=== PATIENT | male | born 1935 | race Two or more races ===

== ENCOUNTER 2021-03-31 11:47 | Inpatient (IN) | payer MEDICARE, MEDICAID ==
[~2021-03-31] VITALS: Ht 162.6 cm; Wt 70.6 kg
[2021-03-31] MEDS ORDERED: SODIUM CHLORIDE FLUSH 10ML SYR IVF ONE (12:30)
[2021-03-31] MEDS ORDERED: SODIUM CHLORIDE 0.9% 1,000 ML IV ONE (12:30)
--- NOTE | 2021-03-31 12:30 | NUR ---
Late entry summary note: This pt is coming from home where he lives with his son. He normally ambulates independently. Per son, pt stopped eating and began becoming weak (AEB not being able to stand up off the couch by himself) about 3 weeks ago. Pt denies pain, complains only of weakness. Pt is A&Ox4. Connected to all monitors. Addendum: 03/31/21 at 1316 by [email or web address] Late entry summary note: This pt is coming from home where he lives with his son. He normally ambulates independently. Per son, pt stopped eating and began becoming weak (AEB not being able to stand up off the couch by himself) about 3 weeks ago. He recieved his first dose of a COVID vaccine 3 days ago. Pt denies pain, complains only of weakness. Pt is A&Ox4. Connected to all monitors.
[2021-03-31] MEDS ORDERED: METF500T17 PO (12:44)
[2021-03-31] MEDS ORDERED: ATOR10TA9 PO (12:44)
--- NOTE | 2021-03-31 12:44 | NUR ---
TASK RN ASSISTING PRIMARY. ISOLATION CART AT DOORWAY. PINK SHEET STARTED, MED REC COMPLETED.
[2021-03-31] MEDS ORDERED: ACETAMINOPHEN 500 MG TABLET ONE (12:48)
[2021-03-31] MEDS ORDERED: ACETAMINOPHEN 500 MG TABLET PO ONE (13:00)
[2021-03-31 13:27] LABS: BASOPHILS % (AUTO) 1 % (0-1); EOSINOPHILS % (AUTO) 0 % (1-7); LYMPHOCYTES % (AUTO) 9 % (22-44); MEAN CORPUSCULAR HEMOGLOBIN 32.9 pg (27.5-34.5); MEAN CORPUSCULAR HGB CONC 34.6 g/dL (33.2-36.2); MONOCYTES % (AUTO) 11 % (2-9); NEUTROPHILS % (AUTO) 80 % (42-75); PLATELET COUNT 95 x10^3/uL (130-400); RED BLOOD COUNT 5.12 x10^6/uL (4.38-5.82); RED CELL DISTRIBUTION WIDTH 14.4 % (9.4-14.8)
[2021-03-31 13:29] LABS: ALANINE AMINOTRANSFERASE 71 U/L (12-78); ALBUMIN 2.8 g/dL (3.4-5.0); ANION GAP 7 mmol/L (5-15); CALCIUM 7.8 mg/dL (8.5-10.1); CHLORIDE 104 mmol/L (98-107); CREATININE 1.45 mg/dL (0.7-1.3)
[2021-03-31 13:31] LABS: MD NO
[2021-03-31 13:33] LABS: ALKALINE PHOSPHATASE 39 U/L (45-117); BILIRUBIN,TOTAL 1.2 mg/dL (0.2-1.0); TOTAL PROTEIN 6.2 g/dL (6.4-8.2); TROPONIN I 0.021 ng/mL (0.000-0.045)
[2021-03-31 13:34] LABS: ACETONE, SERUM Negative (Negative)
[2021-03-31 13:56] LABS: MICROSCOPIC INDICATED
--- NOTE | 2021-03-31 14:40 | NUR ---
TASK RN COVERING MEAL BREAK. PER ERP, NO SEPSIS PROTOCOL/NO SOURCE OF INFECTION BUT POSSIBLE POST VACCINE FEVER.
[2021-03-31] MEDS ORDERED: GUAIFENESIN/COD200MG-20MG/10ML LIQUID PO PRN (15:30)
[2021-03-31] MEDS ORDERED: ONDANSETRON 2MG/ML, 2ML IVPush PRN (15:30)
[2021-03-31] MEDS ORDERED: TEMAZEPAM 15 MG CAPSULE PO PRN (15:30)
[2021-03-31] MEDS ORDERED: ENALAPRILAT 1.25 MG/ML, 2ML IVPush PRN (15:30)
[2021-03-31] MEDS ORDERED: ACETAMINOPHEN 325 MG TABLET PO PRN (15:30)
[2021-03-31] MEDS ORDERED: morphine SULFATE 10 MG/ML, 1ML IVPush PRN (15:30)
[2021-03-31] MEDS ORDERED: DOCUSATE 100 MG CAPSULE PO PRN (15:30)
[2021-03-31] MEDS ORDERED: CYCLOBENZAPRINE 10 MG TABLET PO PRN (15:30)
--- NOTE | 2021-03-31 15:50 | NUR ---
Pt's arms wet from sweat at time of transfer, no sweat noted on forehead. Took oral temp of 97.8, as pt's RR down to 21. Pt has no complaints, A&Ox4 at time of transfer. SBP noted to be < 90. MD Nur made aware, order for 1L bolus NS received and administered prior to transport.
[2021-03-31] MEDS ORDERED: SODIUM CHLORIDE 0.9% 1,000ML IVBOLUS ONE (16:00)
[2021-03-31] MEDS: SODIUM CHLORIDE 0.9% 1,000 ML IV SCH (17:03)
[2021-03-31] MEDS: INSULIN REGULAR 100 UNITS/ML, 3ML VIAL SQ-INSULIN SCH ×2 (17:55→21:47)
[2021-03-31 18:51] VITALS: BP 126/98
[2021-03-31] MEDS: HEPARIN 5,000 UNITS/ML, 1ML SQ SCH (21:47)
[2021-03-31] MEDS: ATORVASTATIN 10 MG TABLET PO SCH (21:47)
[2021-04-01 01:03] VITALS: BP 95/63
[2021-04-01] MEDS: HEPARIN 5,000 UNITS/ML, 1ML SQ SCH ×3 (05:23→20:39)
[2021-04-01 06:46] VITALS: BP 109/70
[2021-04-01 06:57] LABS: BASOPHILS % (AUTO) 1 % (0-1); EOSINOPHILS % (AUTO) 0 % (1-7); LYMPHOCYTES % (AUTO) 10 % (22-44); MEAN CORPUSCULAR HEMOGLOBIN 32.3 pg (27.5-34.5); MEAN CORPUSCULAR HGB CONC 33.1 g/dL (33.2-36.2); MEAN PLATELET VOLUME 11.5 fL (7.4-10.4); MONOCYTES % (AUTO) 6 % (2-9); NEUTROPHILS % (AUTO) 83 % (42-75); PLATELET COUNT 90 x10^3/uL (130-400); RED BLOOD COUNT 4.96 x10^6/uL (4.38-5.82); RED CELL DISTRIBUTION WIDTH 14.1 % (9.4-14.8)
[2021-04-01] MEDS: INSULIN REGULAR 100 UNITS/ML, 3ML VIAL SQ-INSULIN SCH ×4 (07:00→20:38)
[2021-04-01 07:02] LABS: ANION GAP 5 mmol/L (5-15); CALCIUM 8.1 mg/dL (8.5-10.1); CHLORIDE 109 mmol/L (98-107)
[2021-04-01 07:03] LABS: CREATININE 1.27 mg/dL (0.7-1.3)
[2021-04-01 07:32] LABS: MD SCAN
[2021-04-01] MEDS: FENOFIBRATE 145 MG TABLET PO SCH (09:32)
[2021-04-01] MEDS: SODIUM CHLORIDE 0.9% 1,000 ML IV SCH (12:50)
[2021-04-01 14:26] VITALS: BP 127/75
[2021-04-01] MEDS: DEXAMETHASONE 4 MG TABLET PO SCH (16:49)
[2021-04-01 19:16] VITALS: BP 131/76
[2021-04-01] MEDS: ATORVASTATIN 10 MG TABLET PO SCH (20:38)
[2021-04-02 01:22] VITALS: BP 117/75
[2021-04-02] MEDS: HEPARIN 5,000 UNITS/ML, 1ML SQ SCH (05:10)
[2021-04-02 05:23] LABS: ANION GAP 5 mmol/L (5-15); CALCIUM 8.3 mg/dL (8.5-10.1); CHLORIDE 110 mmol/L (98-107)
[2021-04-02 05:25] LABS: CREATININE 1.22 mg/dL (0.7-1.3)
[2021-04-02 06:16] VITALS: BP 113/76
[2021-04-02] MEDS: INSULIN REGULAR 100 UNITS/ML, 3ML VIAL SQ-INSULIN SCH ×2 (08:01→11:58)
[2021-04-02] MEDS: DEXAMETHASONE 4 MG TABLET PO SCH (08:01)
[2021-04-02] MEDS: FENOFIBRATE 145 MG TABLET PO SCH (08:01)
[2021-04-02] MEDS: SODIUM CHLORIDE 0.9% 1,000 ML IV SCH (09:00)
== END 2021-04-02 12:58 | disposition home or self-care (01) | DRG 640 ==
LOC: ED 13:33 → OBSVTOIN 14:44 → EDIP 14:44 → INTOOBSV 14:44 → 3N 15:54
PROVIDERS: ADMIT Internal Medicine; ATTEND Internal Medicine
DX: E86.0 Dehydration (principal); J96.01 Acute respiratory failure with hypoxia; N17.9 Acute kidney failure, unspecified; R17 Unspecified jaundice; R62.7 Adult failure to thrive; E87.1 Hypo-osmolality and hyponatremia; R50.9 Fever, unspecified; E11.65 Type 2 diabetes mellitus with hyperglycemia; Z66 Do not resuscitate; E78.5 Hyperlipidemia, unspecified; Z90.49 Acquired absence of other specified parts of digestive tract
CPT/HCPCS: 36415; 71045; 80048; 80053; 81001; 82010; 82800; 82962; 83605; 83735; 84100; 84484; 85025; 87040; 93005; 96360; 96361; G0378; J1644; J1815; J7030